=== PATIENT | male | born 1980 | race Caucasian/White ===

== ENCOUNTER 2018-03-30 11:50 | Emergency (ER) | payer OTHER ==
[~2018-03-30] VITALS: Ht 182.9 cm; Wt 97.1 kg
[2018-03-30 12:14] LABS: ABSOLUTE LYMPHOCYTES 1.4 thou/uL (0.8-5.3); ABSOLUTE MONOCYTES 0.4 thou/uL (0.0-1.2); ABSOLUTE NEUTROPHILS 4.2 thou/uL (1.6-8.1); BASOPHILS 0.7 %; EOSINOPHILS 0.7 %; HEMATOCRIT 48.7 % (42.0-52.0); HEMOGLOBIN 16.8 gm/dL (14.0-18.0); LYMPHOCYTES 23.4 %; MCH 31.8 pg (26.0-34.0); MCHC 34.6 g/dL (28.0-37.0); MCV 91.9 fL (80.0-100.0); MONOCYTES 6.1 %; NUCLEATED RBCS 0 /100WBC; PLATELET COUNT* 223 thou/uL (150-400); POLYS 69.1 %; RBC 5.29 mil/uL (4.50-6.00); RDW-CV 12.1 % (10.5-14.5)
[2018-03-30 12:27] LABS: ANION GAP 9 mmol/L (7-16); BUN 28 mg/dL (7-18); CALCIUM 8.8 mg/dL (8.5-10.1); CHLORIDE 102 mmol/L (98-107); CO2 26 mmol/L (21-32); CREATININE 1.1 mg/dL (0.6-1.3); GLUCOSE 86 mg/dL (70-99); POTASSIUM 4.2 mmol/L (3.5-5.1); SODIUM 137 mmol/L (136-145)
[2018-03-30 12:34] LABS: APTT 26.1 Seconds (25.0-31.3); PROTIME 10.7 Seconds (9.20-11.50)
[2018-03-30 12:43] LABS: ALBUMIN 4.4 g/dL (3.4-5.0); ALKALINE PHOSPHATASE 43 U/L (46-116); CK-MB MASS 1.5 ng/mL (<0.5-3.6); LIPASE 178 U/L (73-393); NT-PRO BRAIN NAT PEPTIDE 42 pg/mL (<300); SGOT 31 U/L (15-37); SGPT 40 U/L (30-65); TOTAL BILIRUBIN 0.8 mg/dL (<0.1-1.0); TOTAL PROTEIN 8.1 g/dL (6.4-8.2); TROPONIN-I LEVEL <0.06 ng/mL (<0.06)
[2018-03-30 12:53] VITALS: BP 133/97
--- NOTE | 2018-03-30 16:48 | EKG ---
[place] [address] ELECTROCARDIOGRAM REPORT Name: SUBHA WORTHINGTON Room: [facility]#: [id number] Admission: 03/30/18 Attend Phys: Discharge: 03/30/18 Date of : 80 Report #: [id number] THIS REPORT FOR: //name// [facility] ED Test Date: 2018-03-30 Test Time: 11:56:06 Pat Name: SUBHA WORTHINGTON Department: Room: Gender: M Mid Level Provider: : 1980 Requested By: Cresencio William Order Number: [id number] MD: Ap Beard Measurements Intervals [place] Rate: 66 P: 70 NV: 144 QRS: 50 QRSD: 100 T: 8 QT: 406 QTc: 426 Interpretive Statements Sinus rhythm No previous ECG available for comparison Electronically Signed On 03-30-2018 16:48:24 CDT by Ap Beard [email or web address] <ELECTRONICALLY SIGNED> By: Ap Beard MD, [facility] 03/30/18 1648 [id number] Ap Beard MD, FACC /EPI
== END 2018-03-30 12:53 | disposition home or self-care (01) ==
LOC: M.ERS 11:50
PROVIDERS: Family Medicine
DX: R07.89 Other chest pain (principal)